=== PATIENT | male | born 1945 | race Caucasian/White ===

== ENCOUNTER 2022-01-18 06:37 | Emergency (ER) | payer MEDICARE, OTHER ==
[~2022-01-18] VITALS: Ht 175.3 cm; Wt 114.0 kg
--- NOTE | 2022-01-18 06:54 | PHYS DOC ---
Past History Additional Past Medical Histor: irregular rhythm, 1st degree heart block, enlarged prostate Past Surgical History: Tonsillectomy, Other Additional Past Surgical Histo: umb hernia repari, cataract bilateral General Adult EDM: Chief Complaint: NEURO SYMPTOMS/DEFICITS HPI: HPI: 77-year-old male presents with right-sided weakness. The patient was driving his car at 5 AM when he noticed that his right hand had profound loss of strength. He also had decreased strength had a tingling sensation in his right leg. He was talking to his on the phone and felt like he had some slurred speech but this only lasted for a minute or 2. The hand and leg weakness lasted longer. He pulled into a parking lot and called EMS. Prior to arrival, his symptoms were resolving. At this time he only has a pins and needle sensation in the right hand and right foot. He denies headache, slurred speech, or other change in sensation. He has not tried to walk since the right leg weakness st arted. He was able to stand and pivot without trouble from the EMS gurney to our bed. Patient states he has a history of type I heart block. No previous history of stroke. He does believe he might of had a TIA 2 years ago where he had partial vision loss on the left side that resolved in less than an hour. Denies fever or chills. Review of Systems: Review of Systems: Constitutional: Denies fever or chills Eyes: Denies change in visual acuity HENT: Denies nasal congestion or sore throat Respiratory: Denies cough or shortness of breath Cardiovascular: Denies chest pain or edema GI: Denies abdominal pain, nausea, vomiting, bloody stools or diarrhea : Denies dysuria Musculoskeletal: Denies back pain or joint pain Integument: Denies rash Neurologic: Weakness of the right upper and lower extremity. Temporary slurred speech. Denies headache Endocrine: Denies polyuria or polydipsia Lymphatic: Denies swollen glands Psychiatric: Denies depression or anxiety Allergies: Allergies: Allergies Coded Allergies Type Severity Reaction Last Updated Verified No Known Drug Allergies 01/18/22 No Physical Exam: PE: Constitutional: Well developed, well nourished, no acute distress, non-toxic appearance. [] HENT: Normocephalic, atraumatic, bilateral external ears normal, oropharynx moist, no oral exudates, nose normal. [] Eyes: PERRLA, EOMI, conjunctiva normal, no discharge. [] Neck: Normal range of motion, no tenderness, supple, no stridor. [] Cardiovascular: Heart rate regular rhythm, no murmur [] Lungs & Thorax: Bilateral breath sounds clear to auscultation [] Abdomen: Bowel sounds normal, soft, no tenderness, no masses, no pulsatile masses. [] Skin: Warm, dry, no erythema, no rash. [] Back: No tenderness, no CVA tenderness. [] Extremities: No tenderness, no cyanosis, no clubbing, ROM intact, no edema. [] Neurologic: Alert and oriented X 3, normal motor function, normal sensory function, no focal deficits noted. [] Psychologic: Affect normal, judgement normal, mood normal. [] Current Patient Data: Vital Signs: Vital Signs Date Time Temp Pulse Resp B/P (MAP) Pulse Ox O2 Delivery O2 Flow Rate FiO2 01/18/22 06:37 98.1 70 24 135/86 (102) 97 Room Air EKG: EKG: [] Radiology/Procedures: Radiology/Procedures: [] Impressions: CT brain without contrast. HISTORY: Right hand numbness CT scan of brain was done without contrast. Sinuses are clear. A skull fracture is not identified. There is no intracranial hemorrhage or subdural hematoma. Ventricles are normal in size. There is no mass effect or shift of the midline. An acute CVA is not identified. IMPRESSION: 1. No intracranial hemorrhage or acute CVA noted. XR CHEST 1V History: Reason: right hand numbness / Spl. Instructions: / History: Comparison: None. Findings: No consolidation or pleural effusion. Normal heart size. No pneumothorax. Impression: 1. No acute cardiopulmonary process. Electronically signed by: Andrea Weber DO (01/18/2022 7:54 AM) [id number] DICTATED AND SIGNED BY: ANDREA WEBER DO DATE: 01/18/22 0753 CC: GARCIA STANTON DO; JEAN-PIERRE HERNANDEZ MD ~ [facility] Compliance Statement: One or more of the following individualized dose reduction techniques were utilized for this examination: 1. Automated exposure control 2. Adjustment of the mA and/or kV according to patient size 3. Use of iterative reconstruction technique Electronically signed by: Larry Rodriguez MD (01/18/2022 7:56 AM) [id number] DICTATED AND SIGNED BY: LARRY RODRIGUEZ MD DATE: 01/18/22 0752 CC: GARCIA STANTON DO; JEAN-PIERRE HERNANDEZ MD ~ Heart Score: C/O Chest Pain: N/A Risk Factors: Risk Factors: DM, Current or recent (<one month) smoker, HTN, HLP, family history of CAD, obesity. Risk Scores: Score 0 - 3: 2.5% MACE over next 6 weeks - Discharge Home Score 4 - 6: 20.3% MACE over next 6 weeks - Admit for Clinical Observation Score 7 - 10: 72.7% MACE over next 6 weeks - Early Invasive Strategies Course & Med Decision Making: Course & Med Decision Making Pertinent Labs and Imaging studies reviewed. (See chart for details) The patient's head CT is negative for acute findings. His symptoms have resolved at this time. His visual deficit found on the nurses NIHSS may be a pre-existing issue. The patient's labs are unremarkable. His urine shows 20-40 white cells but few bacteria and positive leukocyte esterase. I discussed this with the patient and he is not having any new urinary symptoms. I will not treat him for UTI at this time. We will wait for culture results. I discussed his results and all of what happened today with the patient. He does not feel like it is necessary to be admitted and I agree he does not absolutely need to be admitted. I stressed to him that he had another episode of any kind similar to this that he would need to come back to the hospital and have a more complete inpatient work-up. Patient states verbal understanding. He has a follow-up with his primary physician soon anyway. He will address his risk factors with his physician at that appointment. He is stable for discharge at this time. [] Dragon Disclaimer: Dragon Disclaimer: This electronic medical record was generated, in whole or in part, using a voice recognition dictation system. Departure Departure: Impression: Primary Impression: TIA (transient ischemic attack) Disposition: HOME / SELF CARE / HOMELESS Condition: STABLE Referrals: JEAN-PIERRE HERNANDEZ MD (PCP) Patient Instructions: Transient Ischemic Attack, [id number] GARCIA STANTON DO January 18, 2022 06:54
[2022-01-18 07:09] LABS: BASO % 1 % (0-3); EOS % 1 % (0-3); HEMATOCRIT 41.1 % (39.0-53.0); HEMOGLOBIN 13.9 g/dL (13.0-17.5); LYMPH # 1.6 x10^3/uL (1.0-4.8); LYMPH % 29 % (24-48); MEAN CORPUSCULAR HEMOGLOBIN 31 pg (25-35); MEAN CORPUSCULAR HGB CONC 34 g/dL (31-37); MEAN CORPUSCULAR VOLUME 92 fL (79-100); MONO # 0.5 x10^3/uL (0.0-1.1); MONO % 9 % (0-9); NEUT # 3.3 x10^3uL (1.8-7.7); NEUT % 60 % (31-73); PLATELET COUNT 191 x10^3/uL (140-400); RED BLOOD COUNT 4.47 x10^6/uL (4.30-5.70); RED CELL DISTRIBUTION WIDTH 14.1 % (11.5-14.5); WHITE BLOOD COUNT 5.5 x10^3/uL (4.0-11.0)
[2022-01-18 07:17] LABS: CALCIUM 8.2 mg/dL (8.5-10.1); GFR 72.5; POTASSIUM 4.4 mmol/L (3.5-5.1)
[2022-01-18 07:23] LABS: ALBUMIN 3.4 g/dL (3.4-5.0); ALBUMIN/GLOBULIN RATIO 1.5 (1.0-1.7); TOTAL BILIRUBIN 1.1 mg/dL (0.2-1.0); TOTAL PROTEIN 5.7 g/dL (6.4-8.2)
[2022-01-18 07:49] LABS: CLARITY,URINE CLEAR; COLOR,URINE YELLOW; GLUCOSE,URINE NEG (NEG); NITRITE,URINE NEG (NEG); UROBILINOGEN,URINE 0.2 mg/dL (0.2 mg/dL); WBC,URINE 20-40 /HPF (0-4)
[2022-01-18 07:50] LABS: BACTERIA,URINE FEW /HPF (0-FEW); SQUAMOUS EPITHELIAL CELL,UR FEW /LPF
--- NOTE | 2022-01-18 07:56 | RAD ---
XR CHEST 1V History: Reason: right hand numbness / Spl. Instructions: / History: Comparison: None. Findings: No consolidation or pleural effusion. Normal heart size. No pneumothorax. Impression: 1. No acute cardiopulmonary process. Electronically signed by: Andrea Weber DO (01/18/2022 7:54 AM) [id number]
--- NOTE | 2022-01-18 07:58 | RAD ---
CT brain without contrast. HISTORY: Right hand numbness CT scan of brain was done without contrast. Sinuses are clear. A skull fracture is not identified. Th ere is no intracranial hemorrhage or subdural hematoma. Ventricles are normal in size. There is no ma ss effect or shift of the midline. An acute CVA is not identified. IMPRESSION: 1. No intracranial hemorrhage or acute CVA noted. PQRS Compliance Statement: One or more of the following individualized dose reduction techniques were utilized for this examinat ion: 1. Automated exposure control 2. Adjustment of the mA and/or kV according to patient size 3. Use of iterative reconstruction technique Electronically signed by: Larry Rodriguez MD (01/18/2022 7:56 AM) [id number]
[2022-01-18 08:40] VITALS: BP 128/80
== END 2022-01-18 08:40 | disposition home or self-care (01) ==
LOC: ER 06:37
DX: G45.9 Transient cerebral ischemic attack, unspecified (principal)
CPT/HCPCS: 36415; 70450; 71045; 80053; 81001; 84484; 85025; 87077; 87086; 87186; 93005; 99285